=== PATIENT | female | born 1965 | race American Indian/Alaskan Native ===

== ENCOUNTER 2017-09-15 13:30 | Outpatient (CLI) | payer OTHER | END 2017-09-15 13:31 | disposition home or self-care (01) | LOC: CARD 13:30 | PROVIDERS: ATTEND Family Medicine | DX: R07.9 Chest pain, unspecified (principal) | CPT/HCPCS: 93005; 93010 ==

== ENCOUNTER 2020-10-28 10:07 | Observation (INO) | payer OTHER ==
[2020-10-28] MEDS ORDERED: HYDROmorphone 1 MG/1 ML INJ IV ONE (10:20)
[2020-10-28] MEDS ORDERED: METOCLOPRAMIDE 10 MG/2 ML INJ IV ONE (10:20)
--- NOTE | 2020-10-28 10:27 | Emergency Department Report ---
ED General Adult HPI - General Chief complaint: Abdominal Pain Stated complaint: Nausea, vomiting abdominal cramping, weakness PUI?: No Time Seen by Provider: 10/28/20 10:12 Source: patient, EMS (Verbal report received from emergency medical services. 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 He/she was evaluated in the context of the global COVID-19 pandemic, which necessitated consideration that the patient might be at risk for infection with the virus that causes COVID-19. Instit utional protocols and algorithms that pertain to the evaluation of patients at risk for COVID-19 are in a state of rapid change based on information released by regulatory bodies including the CDC and federal and state organizations. These policies and algorithms were followed during the patient's care in the emergency department. Please note that these policies, procedures and recommendations changed on a rapid basis. Patient is a 55-year-old female. She is not known to myself previously. She reports distant surgical history of hysterectomy, and oophorectomy. She is brought to the hospital today by emergency medical services with an acute complaint of generalized weakness, which started at 7:00 this morning, accompanied by nausea and vomiting, and epigastric abdominal cramping. Patient states symptoms started at 7:00 this morning. The patient denies headache, neck pain, chest pain. She endorses abdominal cramping. Positive nausea and vomiting. No loss of vision. No neck pain. No loss of taste or smell. Patient denies focal extremity weakness/numbness, but indicates that she feels like her right side is "cramping." EMS reports normal Accu-Chek in the field, unremarkable vital signs, with the exception of bradycardia, and normal Accu- Chek, patient was given 4 of Zofran in the field. Patient indicates her symptoms are constant, and she is not able to describe exacerbating or relieving factors, or radiation factors. No recent surgeries. No hematemesis of bright red blood per rectum. -: Sudden Consistency: constant Improves with: none Worsens with: none - Related Data Allergies Allergy/AdvReac Type Severity Reaction Status Date / Time morphine AdvReac Headache Verified 03/28/21 11:07 ED Review of Systems ROS: Stated complaint: VOMITING/HTW Other details as noted in HPI Constitutional: malaise, weakness, other (Denies loss of taste and smell). denies: fever Eyes: denies: eye discharge, vision change Respiratory: denies: cough Cardiovascular: denies: chest pain Gastrointestinal: nausea, vomiting. denies: abdominal pain (Patient denies a bdominal pain) Musculoskeletal: denies: back pain Neurological: weakness, abnormal gait. denies: headache Hematological/Lymphatic: denies: easy bleeding ED Physical Exam - General Limitations: Physical Limitation General appearance: alert, anxious, in distress, obese - Head Head exam: Present: atraumatic, normocephalic - Eye Eye exam: Present: normal appearance, PERRL, EOMI, other (Visual acuity intact to finger counting and color perception at a close distance). Absent: nystagmus - ENT ENT exam: Present: normal exam, normal orophraynx, mucous membranes moist, normal external ear exam - Neck Neck exam: Present: normal inspection, full ROM. Absent: tenderness, meningi smus - Respiratory Respiratory exam: Present: normal lung sounds bilaterally. Absent: respiratory distress, wheezes, rales, rhonchi, stridor, decreased breath sounds - Cardiovascular Cardiovascular Exam: Present: normal rhythm, bradycardia, normal heart sounds. Absent: systolic murmur, diastolic murmur, rubs, gallop - GI/Abdominal GI/Abdominal exam: Present: soft. Absent: distended, tenderness, guarding, rebound, rigid, pulsatile mass - Extremities Exam Extremities exam: Present: normal inspection, full ROM, other (2+ pulses noted in the bilateral upper and lower extremities. There is no palpable cord. negative Homans sign. Muscular compartments are soft. The pelvis is stable.). Absent: pedal edema, calf tenderness - Back Exam Back exam: Present: normal inspection. Absent: tenderness, CVA tenderness (R), CVA tenderness (L), paraspinal tenderness, vertebral tenderness - Neurological Exam Neurological exam: Present: alert, other (There is no facial droop. The tongue is midline. The extraocular movements are intact bilaterally. Hearing is g rossly intact bilaterally, shoulder shrug is intact bilaterally. 5 out of 5 strength in 4 extremities, sensation is intact to pinch in 4 extremities. Patient has past-pointing in her b) - Psychiatric Psychiatric exam: Present: anxious - Skin Skin exam: Present: warm, dry, intact, normal color. Absent: rash ED Course Vital Signs 10/28/20 10/28/20 10/28/20 10:20 11:16 11:31 Temperature 96.8 F L Pulse Rate 46 L 53 L 56 L Respiratory 22 20 11 L Rate Blood Pressure 98/72 153/70 Blood Pressure 141/66 [Left] O2 Sat by Pulse 99 99 92 Oximetry 10/28/20 10/28/20 10/28/20 11:45 12:00 12:15 Temperature Pulse Rate 56 L 71 79 Respiratory 12 16 19 Rate Blood Pressure 157/64 161/83 105/81 Blood Pressure [Left] O2 Sat by Pulse 99 99 98 Oximetry 10/28/20 10/28/20 12:31 12:45 Temperature Pulse Rate 54 L 59 L Respiratory 15 18 Rate Blood Pressure 131/87 105/81 Blood Pressure [Left] O2 Sat by Pulse 98 97 Oximetry - Reevaluation(s) Reevaluation #1: 10/28/20 10:28 Differential diagnosis, including but not limited to: Cerebellar stroke, obstruction, electrolyte derangement, colitis, diverticulitis, enteritis, acute coronary syndrome Assessment and plan: 55-year-old female with acute onset generalized weakness, nausea and vomiting, nonfocal motor exam, but past-pointing in her bilateral upper extremities, EMS articulates that patient was ambulatory in the field only with a 2 person assist, also with abdominal cramping Patient needs to be evaluated emergently for cerebellar stroke, and acute intra- abdominal surgical conditions. We will treat her empirically with hydromorphone, and Reglan and fluids. Patient emergently administratively consented by myself and stroke neurology for CT scan of the brain, CT angiogram head and neck. We will also obtain emergent CT scan abdomen pelvis to exclude surgical pathology, that would preclude patient from receiving TPA. Currently, patient is in CAT scan, receiving evaluation from our neurologist. 10/28/20 10:30 10/28/20 10:58 Heart rate in the 60s. Blood pressure in the 90s. Patient mentating. IV fluids ordered. Rectal temperature pending. Noncontrast CT scan of the brain negative for acute findings. Angiogram pending formal interpretation. Have discussed the case with Dr. Baca, stroke neurologist. Given hypotension, bradycardia, nonfocal examination, a broad differential diagnosis, we both agree at this point time, that TPA not appropriate or indicated, and we will seek alternative pathology/explanations for patient's presentation. I will also discussed this with the patient and her daughter. 10/28/20 11:34 CT angiogram negative for acute finding CT scan abdomen pelvis is reviewed and appreciated. I had extensive discussion with the patient regarding her CT scan findings, and differential diagnosis. I also specifically counseled the patient as to why we did not think TPA was appropriate/indicated, patient has verbalized understanding, and indicates that she would not like to receive TPA at any point. Blood pressure improved, bradycardia improving. Patient is found to have evidence of lactic acidosis. And very mild hypothermia. Patient be resuscitated empirically according to the sepsis pathway, she has already received 2 L of lactated Ringer's, I will order additional 576 cc, to complete 30 cc/kg bolus. Empiric antibiotics ordered, although I suspect that CT scan findings likely secondary to viral etiology. Hospital physician, Dr. Nyla Boyd to admit Neurologic examination remains unchanged, nonfocal, no focal extremity w eakness/numbness, patient still nauseous, but no active vomiting and I am able to detect 10/28/20 11:39 10/28/20 13:22 Patient feeling improved. No active vomiting. Lactic acid has cleared from 4.6 to 2.0. Hemodynamically stable. Do not see indication for additional lactic acid. Normal mental status at this time, capillary refill 2 seconds. ED Medical Decision Making - Lab Data Result diagrams: 10/28/20 10:53 10/28/20 10:53 Lab Results 10/28/20 Range/Units 10:53 WBC 7.2 (4.5-11.0) K/mm3 RBC 4.66 (3.65-5.03) M/mm3 Hgb 14.2 (10.1-14.3) gm/dl Hct 42.8 (30.3-42.9) % MCV 92 (79-97) fl MCH 31 (28-32) pg MCHC 33 (30-34) % RDW 14.8 (13.2-15.2) % Plt Count 172 (140-440) K/mm3 Lymph % (Auto) 12.6 L (13.4-35.0) % Bowie % (Auto) 4.3 (0.0-7.3) % Eos % (Auto) 0.3 (0.0-4.3) % Baso % (Auto) 0.2 (0.0-1.8) % Lymph # (Auto) 0.9 L (1.2-5.4) K/mm3 Bowie # (Auto) 0.3 (0.0-0.8) K/mm3 Eos # (Auto) 0.0 (0.0-0.4) K/mm3 Baso # (Auto) 0.0 (0.0-0.1) K/mm3 Seg Neutrophils % 82.6 H (40.0-70.0) % Seg Neutrophils # 5.9 (1.8-7.7) K/mm3 Vital Signs 10/28/20 10/28/20 10:20 11:16 Temperature 96.8 F L Pulse Rate 46 L 53 L Respiratory 22 20 Rate Blood Pressure 98/72 Blood Pressure 141/66 [Left] O2 Sat by Pulse 99 99 Oximetry Lab Results 10/28/20 10/28/20 10/28/20 Range/Units 10:21 10:53 10:53 WBC 7.2 (4.5-11.0) K/mm3 RBC 4.66 (3.65-5.03) M/mm3 Hgb 14.2 (10.1-14.3) gm/dl Hct 42.8 (30.3-42.9) % MCV 92 (79-97) fl MCH 31 (28-32) pg MCHC 33 (30-34) % RDW 14.8 (13.2-15.2) % Plt Count 172 (140-440) K/mm3 Lymph % (Auto) 12.6 L (13.4-35.0) % Bowie % (Auto) 4.3 (0.0-7.3) % Eos % (Auto) 0.3 (0.0-4.3) % Baso % (Auto) 0.2 (0.0-1.8) % Lymph # (Auto) 0.9 L (1.2-5.4) K/mm3 Bowie # (Auto) 0.3 (0.0-0.8) K/mm3 Eos # (Auto) 0.0 (0.0-0.4) K/mm3 Baso # (Auto) 0.0 (0.0-0.1) K/mm3 Seg Neutrophils % 82.6 H (40.0-70.0) % Seg Neutrophils # 5.9 (1.8-7.7) K/mm3 PT 13.1 (12.2-14.9) Sec. INR 1.00 (0.87-1.13) APTT 28.5 (24.2-36.6) Sec. Thrombin Time 17.1 (15.1-19.6) Sec. Sodium (137-145) mmol/L Potassium (3.6-5.0) mmol/L Chloride (98-107) mmol/L Carbon Dioxide (22-30) mmol/L Anion Gap mmol/L BUN (7-17) mg/dL Glucose (65-100) mg/dL POC Glucose 185 H (70-105) mg/dL Calcium (8.4-10.2) mg/dL Magnesium (1.7-2.3) mg/dL Total Bilirubin (0.1-1.2) mg/dL AST (5-40) units/L ALT (7-56) units/L Alkaline Phosphatase (35-129) units/L Total Creatine Kinase (30-135) units/L Troponin T (0.00-0.029) ng/mL Total Protein (6.3-8.2) g/dL Albumin (3.9-5) g/dL Albumin/Globulin Ratio % 10/28/ Range/Units 10:53 WBC (4.5-11.0) K/mm3 RBC (3.65-5.03) M/mm3 Hgb (10.1-14.3) gm/dl Hct (30.3-42.9) % MCV (79-97) fl MCH (28-32) pg MCHC (30-34) % RDW (13.2-15.2) % Plt Count (140-440) K/mm3 Lymph % (Auto) (13.4-35.0) % Bowie % (Auto) (0.0-7.3) % Eos % (Auto) (0.0-4.3) % Baso % (Auto) (0.0-1.8) % Lymph # (Auto) (1.2-5.4) K/mm3 Bowie # (Auto) (0.0-0.8) K/mm3 Eos # (Auto) (0.0-0.4) K/mm3 Baso # (Auto) (0.0-0.1) K/mm3 Seg Neutrophils % (40.0-70.0) % Seg Neutrophils # (1.8-7.7) K/mm3 PT (12.2-14.9) Sec. INR (0.87-1.13) APTT (24.2-36.6) Sec. Thrombin Time (15.1-19.6) Sec. Sodium 136 L (137-145) mmol/L Potassium 3.6 (3.6-5.0) mmol/L Chloride 97.6 L (98-107) mmol/L Carbon Dioxide 23 (22-30) mmol/L Anion Gap 19 mmol/L BUN 15 (7-17) mg/dL Glucose 169 H (65-100) mg/dL POC Glucose (70-105) mg/dL Calcium 9.2 (8.4-10.2) mg/dL Magnesium 1.80 (1.7-2.3) mg/dL Total Bilirubin 0.50 (0.1-1.2) mg/dL AST 12 (5-40) units/L ALT 10 (7-56) units/L Alkaline Phosphatase 75 (35-129) units/L Total Creatine Kinase 53 (30-135) units/L Troponin T < 0.010 (0.00-0.029) ng/mL Total Protein 7.0 (6.3-8.2) g/dL Albumin 4.1 (3.9-5) g/dL Albumin/Globulin Ratio 1.4 % Vital Signs 10/28/20 10/28/20 10:20 11:16 Temperature 96.8 F L Pulse Rate 46 L 53 L Respiratory 22 20 Rate Blood Pressure 98/72 Blood Pressure 141/66 [Left] O2 Sat by Pulse 99 99 Oximetry - EKG Data -: EKG Interpreted by Wi EKG shows normal: sinus rhythm Rate: normal - EKG Data 10/28/20 10:59 EKG interpreted at 10: 55 AM Sinus rhythm, 61 bpm. Normal axis. QTC prolonged. Left ventricular hypertrophy. Motion artifact. Abnormal EKG. The EKG is not a STEMI. Patient denies chest pain. - Radiology Data Radiology results: pending, report reviewed, image reviewed Noncontrast CT scan of the brain, read negative for acute findings. NONENHANCED CT SCAN OF THE BRAIN: INDICATION: MAIN. Right-sided weakness; nausea and vomiting TECHNIQUE: Routine CT head without contrast. Sagittal and coronal reformatted images were obtained. All CT scans at this location are performed using CT dose reduction for ALARA by means of automated exposure control. COMPARISON: None. FINDINGS: BRAIN / INTRACRANIAL CONTENTS: Hemorrhage: No intracranial hemorrhage; no subarachnoid hemorrhage Stroke mimics: No subdural or epidural hematoma or space taking lesion Acute/subacute territorial infarction: Moreland-white matter interface: No blurring; normal Insular cortex: Normal Basal ganglia: Normal Wedge shaped parenchymal low density area: Not present Cortical sulci: Not effaced Lacunar infarctions: No acute lacunae Vasculopathy: Dense middle cerebral artery sign: Not present Internal carotid artery terminus: Normal Basilar artery:Normal Middle cerebral artery branches in the sylvian fissure (Dot sign): Normal Calcified embolus: Not present ASPECT score: 10 Chronic lesions: No chronic ischemic lesions White matter: Focal low- attenuation white matter lesions probably from chronic small vessel disease Craniocervical junction:No significant abnormality Orbits:No significant abnormality Paranasal sinuses/mastoids:No significant abnormality Additional findings: None IMPRESSION: No intracerebral hemorrhage or stroke mimics No acute/subacute infarction This exam was performed as part of a code stroke protocol. The exam was completed at [facility] on 10/28/2020 9:45 AM. The exam was reviewed at 9:50 AM and ER physician was notified at 9:54 AM. Signer Name: Carmela Rivera MD Signed: 10/28/2020 9:55 AM Workstation Name: [id number] CT ABDOMEN AND PELVIS WITH CONTRAST INDICATION / CLINICAL INFORMATION: Weakness, nausea, vomiting. TECHNIQUE: Axial CT images were obtained through the abdomen and pelvis following the administration of intravenous contrast. All CT scans at this location are performed using CT dose reduction for ALARA by means of automated exposure control. COMPARISON: None available. FINDINGS: LOWER CHEST: No significant abnormality. LIVER: No significant abnormality. GALLBLADDER: No significant abnormality. PANCREAS: No significant abnormality. SPLEEN: No significant abnormality. ADRENALS: No significant abnormality. KIDNEYS / URETERS: No significant abnormality. URINARY BLADDER: No significant abnormality. REPRODUCTIVE ORGANS: No significant abnormality. STOMACH / SMALL BOWEL: There are several fluid-filled loops of small bowel which demonstrate mild mucosal enhancement. COLON: There is fluid within the descending and sigmoid colon, also with mild mucosal enhancement. APPENDIX: No significant ab normality. PERITONEUM: No free fluid. No free air. No fluid collection. LYMPH NODES: No significant adenopathy. AORTA / ARTERIES: No significant abnormality. IVC / VEINS: No significant abnormality. SKELETAL SYSTEM: No significant abnormality. ADDITIONAL FINDINGS: None. IMPRESSION: 1. Fluid-filled loops of small bowel with mild mucosal enhancement is suggestive of an enteritis. There is also fluid within the distal descending and sigmoid colon. Signer Name: Jp Tristan MD Signed: 10/28/2020 10:00 AM Workstation Name: [id number] CTA NECK WITH CONTRAST HISTORY: Weakness on the right side; nausea and vomiting Cerebellar stroke COMPARISON: None. TECHNIQUE: Routine CTA of the neck was performed. 3-D/MIP reformats were postprocessed. Percentage stenosis is determined by direct quantitative measurements of diseased internal carotid artery diameter compared with normal distal internal carotid artery reference segments or by criteria similar to NASCET where applicable.All CT scans at this location are performed using CT dose reduction for [employer] by means of automated exposure control CONTRAST: 100 ml of Omnipaque 350 FINDINGS: Aortic arch: No significant abnormality. Cervical vertebral arteries: No significant abnormality. Common carotid arteries: No significant abnormality. Carotid bifurcations: Normal Cervical internal carotid arteries: No significant abnormality. Additional findings: None. IMPRESSION: 1. No significant abnormality. Signer Name: Carmela Rivera MD Signed: 10/28/2020 10:03 AM Workstation Name: [id number] CTA HEAD WITH CONTRAST HISTORY: Weakness on the right side; nausea and vomiting Cerebellar stroke COMPARISON: None. TECHNIQUE: Routine non-contrast CT Head, CTA of the head and post-contrast CT Head are performed. 3-D/MIP reformats postprocessed. All CT scans at this location are performed using CT dose reduction for ALARA by means of automated exposure control CONTRAST: 100 ml of Omnipaque 350 FINDINGS: CTA Head: Intracranial vertebral arteries: Both vertebral arteries are normal; right PICA normal Basilar artery: No significant abnormality. Posterior cerebral arteries: No significant abnormality. Posterior communicating arteries are contributing to posterior cerebral arteries Intracranial internal carotid arteries: No significant abnormality. Anterior cerebral arteries: No significant abnormality. Middle cerebral arteries: No significant abnormality. Dural venous sinuses:Not optimally opacified. No sign ificant abnormality. Additional findings: None. IMPRESSION: 1. No significant abnormality. Signer Name: Carmela Rivera MD Signed: 10/28/2020 10:07 AM Workstation Name: [id number] Critical Care Time: Yes Critical care time in (mins) excluding proc time.: 35 Critical care attestation.: If time is entered above; I have spent that time in minutes in the direct care of this critically ill patient, excluding procedure time. ED Disposition Clinical Impression: Acute weakness, History of bradycardia, Acute abdominal pain, SIRS (systemic inflammatory response syndrome), Lactic acidosis Nausea and vomiting Qualifiers: Vomiting type: unspecified Vomiting Intractability: unspecified Qualified Code(s): R11.2 - Nausea with vomiting, unspecified Hypotension Qualifiers: Hypotension type: other hypotension type Qualified Code(s): I95.89 - Other hypotension Disposition: 09 OP ADMIT IP TO THIS HOSP Is pt being admited?: Yes Does the pt Need Aspirin: Yes Condition: Fair Instructions: Abdominal Pain (ED) Referrals: PRIMARY CARE, [Primary Care Provider] - 3-5 Days
[2020-10-28] MEDS ORDERED: LACTATED RINGERS 2,000 ML IV ONE (10:50)
--- NOTE | 2020-10-28 10:56 | Consultation ---
Medications and Allergies Allergies Allergy/AdvReac Type Severity Reaction Status Date / Time No Known Allergies Allergy Unverified 03/17/14 10:09 Active Meds: Active Medications Lactated Ringer's (Lactated Ringers) 2,000 mls @ 999 mls/hr IV BOLUS ONE Stop: 10/28/20 12:50 Assessment and Plan [facility] Consult Note # Demographics Consult Type: 0-6 hour Stroke First Name: Kaia Last Name: Rodger Date of : 1965 Age: 55 Gender: female Time of initial page ([place] ): 10-28-2020, 08:25 Time of return call ([place] ): 10-28-2020, 08:26 # HPI Additional History: 55F with vomiting and lethargy after initially being normal per report. 07:00 right arm and leg felt like vibrating per patient. Abdominal pain and bilious vomiting, also diarrhea. Bradycardia noted. Diaphoretic also. EMS reported she was face down in bathroom when initially encountered. Responsive, interactive upon ED arrival. Patient confirms she was ok initially today. No prior similar per patient. No visual loss or double vision. No weakness, numbness on either side. Denies headache. Possible Alteplase Candidate: not on warfarin or NOACs # Scores Time of exam and NIHSS ([place] ): 10-28-2020, 08:43 Level of Consciousness 1a: [0] = Alert; keenly responsive LOC Questions 1b: [0] = Answers both questions correctly LOC Commands 1c: [0] = Performs both tasks correctly Best Gaze 2: [0] = Normal Visual 3: [0] = No visual loss Facial Palsy 4: [0] = Normal symmetrical movements Motor Arm Left 5a: [0] = No drift Motor Arm Right 5b: [0] = No drift Motor Leg Left 6a: [0] = No drift Motor Leg Right 6b: [0] = No drift Limb Ataxia 7: [0] = Absent Sensory 8: [0] = Normal Best Language 9: [0] = No aphasia Dysarthria 10: [0] = Normal Extinction and Inattention 11: [0] = No abnormality NIHSS Total: 0 # Data Time Head CT personally ready by me ([place] ): 10-28-2020, 08:[address]: preliminarily reviewed by me, please refer to radiology read for official reading, no bleed CTA Head: preliminarily reviewed by me, please refer to radiology read for official reading, no large vessel occlusion CTA Neck: patent vessels, preliminarily reviewed by me, please refer to radiology read for official reading # Assessment Impression: Vertigo, There is no focal neurologic deficit to make stroke the most likely etiology. Could be peripheral vertigo or abdominal process given reported abdominal pain. With available data, risk > benefit for IV tPA as best I can determine. # Plan Thrombolytic/Intervention: NOT IV Alteplase or IA Intervention Alteplase Exclusion: other (see below), risk > benefit. Intraarterial Exclusion: no large vessel occlusion (LVO) Imaging: (urgency: routine admission): MRI Brain without contrast Diagnostic Test: echo with bubble study Other: telemetry monitoring, I have discussed my recommendations with the referring provider Disposition: admit
--- NOTE | 2020-10-28 10:59 | Cat Scan Report ---
NONENHANCED CT SCAN OF THE BRAIN: INDICATION: MAIN. Right-sided weakness; nausea and vomiting TECHNIQUE: Routine CT head without contrast. Sagittal and coronal reformatted images were obtained. A ll CT scans at this location are performed using CT dose reduction for ALARA by means of automated ex posure control. COMPARISON: None. FINDINGS: BRAIN / INTRACRANIAL CONTENTS: Hemorrhage: No intracranial hemorrhage; no subarachnoid hemorrhage Stroke mimics: No subdural or epidural hematoma or space taking lesion Acute/subacute territorial infarction: Moreland-white matter interface: No blurring; normal Insular cortex: Normal Basal ganglia: Normal Wedge shaped parenchymal low density area: Not present Cortical sulci: Not effaced Lacunar infarctions: No acute lacunae Vasculopathy: Dense middle cerebral artery sign: Not present Internal carotid artery terminus: Normal Basilar artery:Normal Middle cerebral artery branches in the sylvian fissure (Dot sign): Normal Calcified embolus: Not present ASPECT score: 10 Chronic lesions: No chronic ischemic lesions White matter: Focal low-attenuation white matter lesions probably from chronic small vessel disease Craniocervical junction:No significant abnormality Orbits:No significant abnormality Paranasal sinuses/mastoids:No significant abnormality Additional findings: None IMPRESSION: No intracerebral hemorrhage or stroke mimics No acute/subacute infarction This exam was performed as part of a code stroke protocol. The exam was completed at [facility] on 10/28/2020 9:45 AM. The exam was reviewed at 9:50 AM and ER physician was notified at 9:54 AM. Signer Name: Carmela Rivera MD Signed: 10/28/2020 10:55 AM Workstation Name: [id number]
[2020-10-28 11:03] LABS: Basophils % (Auto) 0.2 % (0.0-1.8); Eosinophils % (Auto) 0.3 % (0.0-4.3); Hematocrit 42.8 % (30.3-42.9); Hemoglobin 14.2 gm/dl (10.1-14.3); Lymphocytes # (Auto) 0.9 K/mm3 (1.2-5.4); Lymphocytes % (Auto) 12.6 % (13.4-35.0); Mean Corpuscular HGB Conc 33 % (30-34); Mean Corpuscular Volume 92 fl (79-97); Monocytes # (Auto) 0.3 K/mm3 (0.0-0.8); Monocytes % (Auto) 4.3 % (0.0-7.3); Platelet Count 172 K/mm3 (140-440); Red Blood Count 4.66 M/mm3 (3.65-5.03); Red Cell Distribution Width 14.8 % (13.2-15.2)
--- NOTE | 2020-10-28 11:05 | Cat Scan Report ---
CT ABDOMEN AND PELVIS WITH CONTRAST INDICATION / CLINICAL INFORMATION: Weakness, nausea, vomiting. TECHNIQUE: Axial CT images were obtained through the abdomen and pelvis following the administration of intraven ous contrast. All CT scans at this location are performed using CT dose reduction for ALARA by means of automated exposure control. COMPARISON: None available. FINDINGS: LOWER CHEST: No significant abnormality. LIVER: No significant abnormality. GALLBLADDER: No significant abnormality. PANCREAS: No significant abnormality. SPLEEN: No significant abnormality. ADRENALS: No significant abnormality. KIDNEYS / URETERS: No significant abnormality. URINARY BLADDER: No significant abnormality. REPRODUCTIVE ORGANS: No significant abnormality. STOMACH / SMALL BOWEL: There are several fluid-filled loops of small bowel which demonstrate mild muc osal enhancement. COLON: There is fluid within the descending and sigmoid colon, also with mild mucosal enhancement. APPENDIX: No significant abnormality. PERITONEUM: No free fluid. No free air. No fluid collection. LYMPH NODES: No significant adenopathy. AORTA / ARTERIES: No significant abnormality. IVC / VEINS: No significant abnormality. SKELETAL SYSTEM: No significant abnormality. ADDITIONAL FINDINGS: None. IMPRESSION: 1. Fluid-filled loops of small bowel with mild mucosal enhancement is suggestive of an enteritis. The re is also fluid within the distal descending and sigmoid colon. Signer Name: Jp Tristan MD Signed: 10/28/2020 11:00 AM Workstation Name: [id number]
--- NOTE | 2020-10-28 11:07 | Cat Scan Report ---
CTA NECK WITH CONTRAST HISTORY: Weakness on the right side; nausea and vomiting Cerebellar stroke COMPARISON: None. TECHNIQUE: Routine CTA of the neck was performed. 3-D/MIP reformats were postprocessed. Percentage s tenosis is determined by direct quantitative measurements of diseased internal carotid artery diamete r compared with normal distal internal carotid artery reference segments or by criteria similar to NA SCET where applicable.All CT scans at this location are performed using CT dose reduction for ALARA b y means of automated exposure control CONTRAST: 100 ml of Omnipaque 350 FINDINGS: Aortic arch: No significant abnormality. Cervical vertebral arteries: No significant abnormality. Common carotid arteries: No significant abnormality. Carotid bifurcations: Normal Cervical internal carotid arteries: No significant abnormality. Additional findings: None. IMPRESSION: 1. No significant abnormality. Signer Name: Carmela Rivera MD Signed: 10/28/2020 11:03 AM Workstation Name: [id number]
--- NOTE | 2020-10-28 11:08 | XRay Report ---
CHEST 1 VIEW 10/28/2020 10:03 AM INDICATION / CLINICAL INFORMATION: n/v weak. COMPARISON: None available. FINDINGS: SUPPORT DEVICES: None. HEART / MEDIASTINUM: No significant abnormality. LUNGS / PLEURA: No significant pulmonary or pleural abnormality. No pneumothorax. ADDITIONAL FINDINGS: No significant additional findings. IMPRESSION: 1. No acute cardiopulmonary abnormality. Signer Name: Jp Tristan MD Signed: 10/28/2020 11:04 AM Workstation Name: [id number]
--- NOTE | 2020-10-28 11:12 | Cat Scan Report ---
CTA HEAD WITH CONTRAST HISTORY: Weakness on the right side; nausea and vomiting Cerebellar stroke COMPARISON: None. TECHNIQUE: Routine non-contrast CT Head, CTA of the head and post-contrast CT Head are performed. 3-D /MIP reformats postprocessed. All CT scans at this location are performed using CT dose reduction for ALARA by means of automated exposure control CONTRAST: 100 ml of Omnipaque 350 FINDINGS: CTA Head: Intracranial vertebral arteries: Both vertebral arteries are normal; right PICA normal Basilar artery: No significant abnormality. Posterior cerebral arteries: No significant abnormality. Posterior communicating arteries are contrib uting to posterior cerebral arteries Intracranial internal carotid arteries: No significant abnormality. Anterior cerebral arteries: No significant abnormality. Middle cerebral arteries: No significant abnormality. Dural venous sinuses:Not optimally opacified. No significant abnormality. Additional findings: None. IMPRESSION: 1. No significant abnormality. Signer Name: Carmela Rivera MD Signed: 10/28/2020 11:07 AM Workstation Name: [id number]
[2020-10-28 11:15] LABS: Partial Thromboplastin Time 28.5 Sec. (24.2-36.6); Thrombin Time 17.1 Sec. (15.1-19.6)
[2020-10-28] MEDS ORDERED: ONDANSETRON 4 MG/2 ML INJ IV ONE (11:26)
[2020-10-28 11:29] LABS: Alanine Aminotransferase 10 units/L (7-56); Albumin 4.1 g/dL (3.9-5); Blood Urea Nitrogen 15 mg/dL (7-17); Calcium 9.2 mg/dL (8.4-10.2); Hemolysis Index 5
[2020-10-28 11:34] LABS: BUN/Creatinine Ratio 21; Creatine Kinase MB < 1.0 ng/mL (0.0-4.0)
[2020-10-28] MEDS ORDERED: LACTATED RINGERS IV ONE (11:38)
[2020-10-28] MEDS ORDERED: metroNIDAZOLE/NS 500 MG/100 ML 500 MG/100 ML BAG IV ONE (11:38)
[2020-10-28] MEDS ORDERED: ASPIRIN 81 MG TAB CHEW PO ONE (11:41)
[2020-10-28 12:33] LABS: Bilirubin,Urine NEG (Negative); Blood,Urine NEG (Negative); Color,Urine Yellow (Yellow); Mucus,Urine FEW /HPF; Protein,Urine <15 mg/dL mg/dL (Negative); Urobilinogen,Urine < 2.0 mg/dL (<2.0)
[2020-10-28] MEDS ORDERED: ONDANSETRON 4 MG/2 ML INJ IV PRN ×2 (19:31→21:28)
--- NOTE | 2020-10-28 21:20 | History and Physical Report ---
History of Present Illness Date of examination: 10/28/20 Date of admission: 10/28/20 11:41 Chief complaint: Multiple episodes of vomiting and diarrhea History of present illness: 55-year-old female comes in for nausea vomiting and epigastric pain since 7 AM. Patient apparently vomited numerous times. Also has abdominal cramps. Patient had a low pulse rate which is normalized in the emergency room. No loss of taste or smell. No neurological symptoms. ER physician consulted neurology for unknown reasons. No blood per rectum. Her main complaint is persistent vomiting and nausea. Past History Past Medical History: No medical history Past Surgical History: No surgical history Social history: lives with family, full code Family history: no significant family history Medications and Allergies Allergies Allergy/AdvReac Type Severity Reaction Status Date / Time morphine AdvReac Headache Verified 10/28/20 11:07 Active Meds: Active Medications Ondansetron HCl (Ondansetron 4 Mg/2 Ml Inj) 4 mg IV Q4H PRN PRN Reason: Nausea And Vomiting Last Admin: 10/28/20 19:49 Dose: 4 mg Documented by: Review of Systems All systems: negative Constitutional: no weight loss, no weight gain, no fever, no chills Ears, nose, mouth and throat: no tinnitis Breasts: deferred Cardiovascular: no chest pain, no orthopnea, no palpitations, no rapid/irregular heart beat, no edema, no syncope, no lightheadedness, no shortness of breath Respiratory: no cough, no cough with sputum, no excessive sputum, no hemoptysis, no shortness of breath Gastrointestinal: abdominal pain, nausea, vomiting, diarrhea Genitourinary Female: no dysuria, no urinary frequency Rectal: no pain Integumentary: no pruritis, no redness Psychiatric: no anxiety, no hypersomnia Exam - Constitutional Vitals: Temp Pulse Resp BP Pulse Ox 96.8 F L 65 12 158/80 94 10/28/20 10:20 10/28/20 18:45 10/28/20 18:45 10/28/20 18:45 10/28/20 18:45 General appearance: Present: no acute distress, well-nourished - EENT Eyes: Present: PERRL ENT: hearing intact, clear oral mucosa - Neck Neck: Present: supple, normal ROM - Respiratory Respiratory effort: normal Respiratory: bilateral: CTA - Cardiovascular Heart rate: 78 Rhythm: regular Heart Sounds: Present: S1 & S2. Absent: rub, click - Extremities Extremities: pulses symmetrical, No edema Peripheral Pulses: within normal limits - Abdominal General gastrointestinal: Present: soft, tender, non-distended, normal bowel sounds Localized gastrointestinal: tender: diffuse (No guarding) Female genitourinary: Present: normal - Integumentary Integumentary: Present: clear, warm, dry - Musculoskeletal Musculoskeletal: gait normal, strength equal bilaterally - Psychiatric Psychiatric: appropriate mood/affect, intact judgment & insight - Neurologic Neurologic: CNII-XII intact, moves all extremities HEART Score - HEART Score Troponin: Troponin T < 0.010 ng/mL (0.00-0.029) 10/28/20 10:53 Results - Labs CBC & Chem 7: 10/28/20 10:53 10/28/20 10:53 Labs: Laboratory Last Values WBC 7.2 K/mm3 (4.5-11.0) 10/28/20 10:53 RBC 4.66 M/mm3 (3.65-5.03) 10/28/20 10:53 Hgb 14.2 gm/dl (10.1-14.3) 10/28/20 10:53 Hct 42.8 % (30.3-42.9) 10/28/20 10:53 MCV 92 fl (79-97) 10/28/20 10:53 MCH 31 pg (28-32) 10/28/20 10:53 MCHC 33 % (30-34) 10/28/20 10:53 RDW 14.8 % (13.2-15.2) 10/28/20 10:53 Plt Count 172 K/mm3 (140-440) 10/28/20 10:53 Lymph % (Auto) 12.6 % (13.4-35.0) L 10/28/20 10:53 [place] % (Auto) 4.3 % (0.0-7.3) 10/28/20 10:53 Eos % (Auto) 0.3 % (0.0-4.3) 10/28/20 10:53 Baso % (Auto) 0.2 % (0.0-1.8) 10/28/20 10:53 Lymph # (Auto) 0.9 K/mm3 (1.2-5.4) L 10/28/20 10:53 [place] # (Auto) 0.3 K/mm3 (0.0-0.8) 10/28/20 10:53 Eos # (Auto) 0.0 K/mm3 (0.0-0.4) 10/28/20 10:53 Baso # (Auto) 0.0 K/mm3 (0.0-0.1) 10/28/20 10:53 Seg Neutrophils % 82.6 % (40.0-70.0) H 10/28/20 10:53 Seg Neutrophils # 5.9 K/mm3 (1.8-7.7) 10/28/20 10:53 PT 13.1 Sec. (12.2-14.9) 10/28/20 10:53 INR 1.00 (0.87-1.13) 10/28/20 10:53 APTT 28.5 Sec. (24.2-36.6) 10/28/20 10:53 Thrombin Time 17.1 Sec. (15.1-19.6) 10/28/20 10:53 Sodium 136 mmol/L (137-145) L 10/28/20 10:53 Potassium 3.6 mmol/L (3.6-5.0) 10/28/20 10:53 Chloride 97.6 mmol/L (98-107) L 10/28/20 10:53 Carbon Dioxide 23 mmol/L (22-30) 10/28/20 10:53 Anion Gap 19 mmol/L 10/28/20 10:53 BUN 15 mg/dL (7-17) 10/28/20 10:53 Creatinine 0.7 mg/dL (0.6-1.2) 10/28/20 10:53 Estimated GFR > 60 ml/min 10/28/20 10:53 BUN/Creatinine Ratio 21 % 10/28/20 10:53 Glucose 169 mg/dL (65-100) H 10/28/20 10:53 POC Glucose 185 mg/dL (70-105) H 10/28/20 10:21 Lactic Acid 2.00 mmol/L (0.7-2.0) 10/28/20 12:52 Calcium 9.2 mg/dL (8.4-10.2) 10/28/20 10:53 Magnesium 1.80 mg/dL (1.7-2.3) 10/28/20 10:53 Total Bilirubin 0.50 mg/dL (0.1-1.2) 10/28/20 10:53 AST 12 units/L (5-40) 10/28/20 10:53 ALT 10 units/L (7-56) 10/28/20 10:53 Alkaline Phosphatase 75 units/L (35-129) 10/28/20 10:53 Total Creatine Kinase 53 units/L (30-135) 10/28/20 10:53 CK-MB (CK-2) < 1.0 ng/mL (0.0-4.0) 10/28/20 10:53 CK-MB (CK-2) Rel Index 1.8 (0-4) 10/28/20 10:53 Troponin T < 0.010 ng/mL (0.00-0.029) 10/28/20 10:53 Total Protein 7.0 g/dL (6.3-8.2) 10/28/20 10:53 Albumin 4.1 g/dL (3.9-5) 10/28/20 10:53 Albumin/Globulin Ratio 1.4 % 10/28/20 10:53 Urine Color Yellow (Yellow) 10/28/20 Unknown Urine Turbidity Clear (Clear) 10/28/20 Unknown Urine pH 8.0 (5.0-7.0) H 10/28/20 Unknown Ur Specific [place] 1.043 (1.003-1.030) H 10/28/20 Unknown Urine Protein <15 mg/dl mg/dL (Negative) 10/28/20 Unknown Urine Glucose (UA) Neg mg/dL (Negative) 10/28/20 Unknown Urine Ketones 20 mg/dL (Negative) 10/28/20 Unknown Urine Blood Neg (Negative) 10/28/20 Unknown Urine Nitrite Neg (Negative) 10/28/20 Unknown Urine Bilirubin Neg (Negative) 10/28/20 Unknown Urine Urobilinogen < 2.0 mg/dL (<2.0) 10/28/20 Unknown Ur Leukocyte Esterase Neg (Negative) 10/28/20 Unknown Urine WBC (Auto) 1.0 /HPF (0.0-6.0) 10/28/20 Unknown Urine RBC (Auto) 5.0 /HPF (0.0-6.0) 10/28/20 Unknown U Epithel Cells (Auto) 3.0 /HPF (0-13.0) 10/28/20 Unknown Urine Mucus Few /HPF 10/28/20 Unknown Plasma/Serum Alcohol < 0.01 % (0-0.07) 10/28/20 10:53 Microbiology: Microbiology 10/28/20 10:53 Peripheral/Venous Blood Culture - Preliminary Culture in Progress 10/28/20 10:53 Peripheral/Venous Blood Culture - Preliminary Culture in Progress - Imaging and Cardiology Imaging and Cardiology: CT abdomen and pelvis Fluid-filled loops of small bowel with mild mucosal enhancement is suggestive of enteritis. there is also fluid within the distal descending and sigmoid colon Neck CTA No significant abnormality Head CTA No significant abnormality Head CT No intracranial or intracerebral hemorrhage or stroke mimics No acute or subacute infarction Chest x-ray No acute cardiopulmonary abnormality Assessment and Plan Advance Directives: Yes (Full code) VTE prophylaxis?: Chemical Plan of care discussed with patient/family: Yes - Patient Problems (1) SIRS (systemic inflammatory response syndrome) Current Visit: Yes Status: Acute Plan to address problem: Symptom complex consistent with sepsis (2) Acute gastroenteritis Current Visit: Yes Status: Acute Plan to address problem: Probable viral etiology N.p.o. IV fluids GI consult No small bowel obstruction Symptomatic treatment (3) Elevated lactic acid level Current Visit: Yes Status: Acute Plan to address problem: Probably secondary to vomiting No signs of infection and chest/urine (4) Hyponatremia Current Visit: Yes Status: Acute Plan to address problem: IV fluids for now (5) DVT prophylaxis Current Visit: Yes Status: Acute Plan to address problem: On heparin and GI prophylaxis
[2020-10-28] MEDS ORDERED: ACETAMINOPHEN 325 MG TAB PO PRN (21:28)
[2020-10-28] MEDS ORDERED: HYDROmorphone 1 MG/1 ML INJ IV PRN (21:28)
[2020-10-28] MEDS: D5W/0.9% NACL 1,000 ML IV SCH (22:47)
[2020-10-28] MEDS: PIPERACIL/TAZOBACTA 4.5/NS 100 4.5 GM/100 ML VIAL IV SCH (22:48)
[2020-10-28] MEDS: FAMOTIDINE 20 MG/2 ML INJ IV SCH (22:48)
[2020-10-28] MEDS: HEPARIN 5,000 UNIT/1 ML VIAL SUB-Q SCH (22:48)
[2020-10-29] MEDS ORDERED: ACETAMINOPHEN 650 MG RECT SUPP PR PRN (04:49)
[2020-10-29] MEDS: PIPERACIL/TAZOBACTA 4.5/NS 100 4.5 GM/100 ML VIAL IV SCH (06:06)
[2020-10-29] MEDS: D5W/0.9% NACL 1,000 ML IV SCH ×2 (06:49→15:56)
[2020-10-29 07:33] LABS: Basophils % (Auto) 0.3 % (0.0-1.8); Hematocrit 37.3 % (30.3-42.9); Hemoglobin 12.7 gm/dl (10.1-14.3); Lymphocytes # (Auto) 0.5 K/mm3 (1.2-5.4); Lymphocytes % (Auto) 10.8 % (13.4-35.0); Mean Corpuscular HGB Conc 34 % (30-34); Mean Corpuscular Volume 91 fl (79-97); Monocytes # (Auto) 0.3 K/mm3 (0.0-0.8); Monocytes % (Auto) 6.7 % (0.0-7.3); Platelet Count 142 K/mm3 (140-440); Red Blood Count 4.12 M/mm3 (3.65-5.03); Red Cell Distribution Width 14.5 % (13.2-15.2)
[2020-10-29 08:02] LABS: Alanine Aminotransferase 11 units/L (7-56); Albumin 3.7 g/dL (3.9-5); Blood Urea Nitrogen 12 mg/dL (7-17); Calcium 8.7 mg/dL (8.4-10.2); Hemolysis Index 0
[2020-10-29 08:03] LABS: BUN/Creatinine Ratio 17
--- NOTE | 2020-10-29 09:07 | Progress Note ---
Assessment and Plan Assessment and plan: --SIRS (systemic inflammatory response syndrome) Current Visit: Yes Status: Acute Plan to address problem: Empiric antibiotics follow cultures --Acute gastroenteritis/possible colitis Current Visit: Yes Status: Acute Plan to address problem: IV fluids, antiemetics, supportive care GI evaluation noted and appreciated Possible infectious diarrhea GI recommend check stool for C. difficile Will change antibiotics to Flagyl and Levaquin supportive care CT abdomen and pelvis fluid-filled loops of small bowel with mild mucosal enhancement suggestive of enteritis also fluid within the distal descending and sigmoid colon distal descending and sigmoid colon --Lactic acidosis elevated lactic acid level Current Visit: Yes Status: Acute Plan to address problem: Resolved --Hypokalemia; Current Visit: Yes Status: Acute Plan to address problem: replenished per protocol With oral KCl, Follow electrolytes --Neuro symptoms; Current Visit: Yes Status: Acute Plan to address problem: telemetry neurologist evaluated the patient recommend neuro work-up Patient has no neuro symptoms We will hold off further neuro work-up CT head without contrast CTA neck CTA head negative; PT evaluation --Hyponatremia Current Visit: Yes Status: Acute Plan to address problem: Significant improvement, continue IV fluids --DVT prophylaxis Current Visit: Yes Status: Acute Plan to address problem: On heparin and GI prophylaxis We will closely monitor patient and adjust management as needed, Plan of care reviewed with the patient and her nurse History Interval history: I have seen and examined the patient at the bedside Patient's chart and medications reviewed Patient was admitted with intractable nausea vomiting and diarrhea Symptoms slightly improved still continues to have nausea vomiting and even diarrhea Patient complains of generalized weakness, abdominal pain Vital signs noted Hospitalist Physical - Constitutional Vitals: Temp Pulse Resp BP Pulse Ox 98.1 F 65 16 142/72 96 10/29/20 04:55 10/29/20 04:55 10/29/20 04:55 10/29/20 04:55 10/29/20 04:55 General appearance: Present: mild distress, well-nourished - EENT Eyes: Present: PERRL, EOM intact - Neck Neck: Present: supple, normal ROM - Respiratory Respiratory effort: normal Respiratory: bilateral: diminished, negative: rales, rhonchi, wheezing - Cardiovascular Rhythm: regular Heart Sounds: Present: S1 & S2 - Extremities Extremities: no ischemia, No edema - Abdominal General gastrointestinal: soft, non-tender, non-distended, normal bowel sounds - Integumentary Integumentary: Present: clear, warm - Psychiatric Psychiatric: appropriate mood/affect, cooperative - Neurologic Neurologic: moves all extremities HEART Score - HEART Score Troponin: Troponin T < 0.010 ng/mL (0.00-0.029) 10/28/20 10:53 Results - Labs CBC & Chem 7: 10/29/20 06:56 10/29/20 06:56 Labs: Laboratory Last Values WBC 4.2 K/mm3 (4.5-11.0) L 10/29/20 06:56 RBC 4.12 M/mm3 (3.65-5.03) 10/29/20 06:56 Hgb 12.7 gm/dl (10.1-14.3) 10/29/20 06:56 Hct 37.3 % (30.3-42.9) 10/29/20 06:56 MCV 91 fl (79-97) 10/29/20 06:56 MCH 31 pg (28-32) 10/29/20 06:56 MCHC 34 % (30-34) 10/29/20 06:56 RDW 14.5 % (13.2-15.2) 10/29/20 06:56 Plt Count 142 K/mm3 (140-440) 10/29/20 06:56 Lymph % (Auto) 10.8 % (13.4-35.0) L 10/29/20 06:56 [place] % (Auto) 6.7 % (0.0-7.3) 10/29/20 06:56 Eos % (Auto) 0.0 % (0.0-4.3) 10/29/20 06:56 Baso % (Auto) 0.3 % (0.0-1.8) 10/29/20 06:56 Lymph # (Auto) 0.5 K/mm3 (1.2-5.4) L 10/29/20 06:56 [place] # (Auto) 0.3 K/mm3 (0.0-0.8) 10/29/20 06:56 Eos # (Auto) 0.0 K/mm3 (0.0-0.4) 10/29/20 06:56 Baso # (Auto) 0.0 K/mm3 (0.0-0.1) 10/29/20 06:56 Seg Neutrophils % 82.2 % (40.0-70.0) H 10/29/20 06:56 Seg Neutrophils # 3.4 K/mm3 (1.8-7.7) 10/29/20 06:56 PT 13.1 Sec. (12.2-14.9) 10/28/20 10:53 INR 1.00 (0.87-1.13) 10/28/20 10:53 APTT 28.5 Sec. (24.2-36.6) 10/28/20 10:53 Thrombin Time 17.1 Sec. (15.1-19.6) 10/28/20 10:53 Sodium 144 mmol/L (137-145) D 10/29/20 06:56 Potassium 3.4 mmol/L (3.6-5.0) L 10/29/20 06:56 Chloride 106.7 mmol/L (98-107) 10/29/20 06:56 Carbon Dioxide 27 mmol/L (22-30) 10/29/20 06:56 Anion Gap 14 mmol/L 10/29/20 06:56 BUN 12 mg/dL (7-17) 10/29/20 06:56 Creatinine 0.7 mg/dL (0.6-1.2) 10/29/20 06:56 Estimated GFR > 60 ml/min 10/29/20 06:56 BUN/Creatinine Ratio 17 % 10/29/20 06:56 Glucose 102 mg/dL (65-100) H 10/29/20 06:56 POC Glucose 107 mg/dL (70-105) H 10/29/20 07:52 Hemoglobin A1c 5.3 % (4-6) 10/28/20 10:53 Lactic Acid 2.00 mmol/L (0.7-2.0) 10/28/20 12:52 Calcium 8.7 mg/dL (8.4-10.2) 10/29/20 06:56 Magnesium 1.80 mg/dL (1.7-2.3) 10/28/20 10:53 Total Bilirubin 0.30 mg/dL (0.1-1.2) 10/29/20 06:56 AST 12 units/L (5-40) 10/29/20 06:56 ALT 11 units/L (7-56) 10/29/20 06:56 Alkaline Phosphatase 57 units/L (35-129) 10/29/20 06:56 Total Creatine Kinase 53 units/L (30-135) 10/28/20 10:53 CK-MB (CK-2) < 1.0 ng/mL (0.0-4.0) 10/28/20 10:53 CK-MB (CK-2) Rel Index 1.8 (0-4) 10/28/20 10:53 Troponin T < 0.010 ng/mL (0.00-0.029) 10/28/20 10:53 Total Protein 6.1 g/dL (6.3-8.2) L 10/29/20 06:56 Albumin 3.7 g/dL (3.9-5) L 10/29/20 06:56 Albumin/Globulin Ratio 1.5 % 10/29/20 06:56 Urine Color Yellow (Yellow) 10/28/20 Unknown Urine Turbidity Clear (Clear) 10/28/20 Unknown Urine pH 8.0 (5.0-7.0) H 10/28/20 Unknown Ur Specific [place] 1.043 (1.003-1.030) H 10/28/20 Unknown Urine Protein <15 mg/dl mg/dL (Negative) 10/28/20 Unknown Urine Glucose (UA) Neg mg/dL (Negative) 10/28/20 Unknown Urine Ketones 20 mg/dL (Negative) 10/28/20 Unknown Urine Blood Neg (Negative) 10/28/20 Unknown Urine Nitrite Neg (Negative) 10/28/20 Unknown Urine Bilirubin Neg (Negative) 10/28/20 Unknown Urine Urobilinogen < 2.0 mg/dL (<2.0) 10/28/20 Unknown Ur Leukocyte Esterase Neg (Negative) 10/28/20 Unknown Urine WBC (Auto) 1.0 /HPF (0.0-6.0) 10/28/20 Unknown Urine RBC (Auto) 5.0 /HPF (0.0-6.0) 10/28/20 Unknown U Epithel Cells (Auto) 3.0 /HPF (0-13.0) 10/28/20 Unknown Urine Mucus Few /HPF 10/28/20 Unknown Plasma/Serum Alcohol < 0.01 % (0-0.07) 10/28/20 10:53 Microbiology: Microbiology 10/28/20 10:53 Peripheral/Venous Blood Culture - Preliminary Culture in Progress 10/28/20 10:53 Peripheral/Venous Blood Culture - Preliminary Culture in Progress Hahn/IV: Voiding Method Toilet Active Medications - Current Medications Current Medications: Generic Name Dose Route Start Last Admin Trade Name Freq PRN Reason Stop Dose Admin Acetaminophen 650 mg 10/28/20 21:28 Acetaminophen 325 Mg Tab PO Q4H PRN Pain MILD(1-3)/Fever >100.5/POWELL Acetaminophen 650 mg 10/29/20 04:49 Acetaminophen 650 Mg Rect Supp MO Q4H PRN Pain, Mild (1-3) Famotidine 20 mg 10/28/20 22:00 10/28/20 22:48 Famotidine 20 Mg/2 Ml Inj IV 20 mg BID PATRICIA Administration Heparin Sodium (Porcine) 5,000 unit 10/28/20 22:00 10/28/20 22:48 Heparin 5,000 Unit/1 Ml Vial SUB-Q 5,000 unit Q12HR PATRICIA Administration Hydromorphone HCl 0.5 mg 10/28/20 21:28 10/28/20 22:53 Hydromorphone 1 Mg/1 Ml Inj IV 0.5 mg Q3H PRN Administration Pain , Severe (7-10) Dextrose/Sodium Chloride 1,000 mls @ 125 mls/hr 10/28/20 22:00 10/29/20 06:49 D5ns IV 125 mls/hr DIRECT PATRICIA Administration Piperacillin Sod/Tazobactam Sod 4.5 gm in 100 mls @ 200 mls/hr 10/28/20 22:00 10/29/20 06:49 Zosyn/Ns 4.5gm/100ml IV Infused Q8HR PATRICIA Infusion Protocol Ondansetron HCl 4 mg 10/28/20 21:28 10/29/20 06:54 Ondansetron 4 Mg/2 Ml Inj IV 4 mg Q8H PRN Administration Nausea And Vomiting Sodium Chloride 10 ml 10/28/20 22:00 10/28/20 22:53 Sodium Chloride 0.9% 10 Ml Flush Syringe IV 10 ml BID PATRICIA Administration Sodium Chloride 10 ml 10/28/20 21:28 Sodium Chloride 0.9% 10 Ml Flush Syringe IV PRN PRN LINE FLUSH
[2020-10-29] MEDS: FAMOTIDINE 20 MG/2 ML INJ IV SCH (09:41)
[2020-10-29] MEDS: HEPARIN 5,000 UNIT/1 ML VIAL SUB-Q SCH (09:41)
--- NOTE | 2020-10-29 11:44 | Gastroenterology Consultation ---
History of Present Illness - Reason for Consult Consult date: 10/29/20 nausea/vomiting, diarrhea Requesting physician: DARIN ENGLISH - History of Present Illness This is a 55 yo female with pmh of HTN admitted overnight for abdominal pain, nausea/vomiting and diarrhea x 1-2 days. Patient reports having chronic nausea for the past 1 year. She saw GI doctor at [place] and had EGD earlier this year and told it showed large folds in the stomach. Yesterday morning, she had worsening nausea and multiple episodes of vomiting along with watery diarrhea. No blood in the stools. Reports twisting knot like abdominal pain in her upper abdomen. Last colonoscopy years ago and told she had polyps. She feels hungry today and wants to try to eat. No additional vomiting today. medication list reviewed. Past History Past Medical History: No medical history, hypertension Past Surgical History: No surgical history Social history: lives with family, full code Family history: no significant family history Medications and Allergies Allergies Allergy/AdvReac Type Severity Reaction Status Date / Time morphine AdvReac Headache Verified 10/28/20 11:07 Active Meds: Active Medications Acetaminophen (Acetaminophen 325 Mg Tab) 650 mg PO Q4H PRN PRN Reason: Pain MILD(1-3)/Fever >100.5/POWELL Acetaminophen (Acetaminophen 650 Mg Rect Supp) 650 mg WI Q4H PRN PRN Reason: Pain, Mild (1-3) Famotidine (Famotidine 20 Mg/2 Ml Inj) 20 mg IV BID [facility] Last Admin: 10/29/20 09:41 Dose: 20 mg Documented by: Heparin Sodium (Porcine) (Heparin 5,000 Unit/1 Ml Vial) 5,000 unit SUB-Q Q12HR [facility] Last Admin: 10/29/20 09:41 Dose: 5,000 unit Documented by: Hydromorphone HCl (Hydromorphone 1 Mg/1 Ml Inj) 0.5 mg IV Q3H PRN PRN Reason: Pain , Severe (7-10) Last Admin: 10/28/20 22:53 Dose: 0.5 mg Documented by: Dextrose/Sodium Chloride (D5ns) 1,000 mls @ 125 mls/hr IV DIRECT [facility] Last Admin: 10/29/20 06:49 Dose: 125 mls/hr Documented by: Piperacillin Sod/Tazobactam Sod (Zosyn/Ns 4.5gm/100ml) 4.5 gm in 100 mls @ 200 mls/hr IV Q8HR PATRICIA; Protocol Last Infusion: 10/29/20 06:49 Dose: Infused Documented by: Ondansetron HCl (Ondansetron 4 Mg/2 Ml Inj) 4 mg IV Q8H PRN PRN Reason: Nausea And Vomiting Last Admin: 10/29/20 06:54 Dose: 4 mg Documented by: Sodium Chloride (Sodium Chloride 0.9% 10 Ml Flush Syringe) 10 ml IV BID PATRICIA Last Admin: 10/29/20 09:42 Dose: 10 ml Documented by: Sodium Chloride (Sodium Chloride 0.9% 10 Ml Flush Syringe) 10 ml IV PRN PRN PRN Reason: LINE FLUSH Review of Systems - Review of Systems All systems: negative Constitutional: weight loss Eyes: deferred Cardiovascular: no chest pain Gastrointestinal: abdominal pain, nausea, vomiting, diarrhea, no BRBPR, no harrison gianna Neurological: weakness Psychiatric: no anxiety Endocrine: no cold intolerance Hematologic/Lymphatic: no easy bruising Allergic/Immunologic: no wheezing Exam - Constitutional Vital Signs: Temp Pulse Resp BP Pulse Ox 98.1 F 65 16 142/72 96 10/29/20 04:55 10/29/20 04:55 10/29/20 04:55 10/29/20 04:55 10/29/20 04:55 General appearance: no acute distress - EENT Eyes: EOM intact ENT: hearing intact - Neck Neck: supple - Respiratory Respiratory effort: normal - Cardiovascular Rhythm: regular Heart Sounds: Present: S1 & S2 - Gastrointestinal General gastrointestinal: Present: soft, tender, non-distended, normal bowel sounds - Neurologic Neurological: alert and oriented x3 - Labs CBC & Chem 7: 10/29/20 06:56 10/29/20 06:56 Lab Results: Laboratory Results - last 24 hr 10/28/20 10/28/20 10/28/20 10:53 10:53 12:52 WBC RBC Hgb Hct MCV MCH MCHC RDW Plt Count Lymph % (Auto) Orange % (Auto) Eos % (Auto) Baso % (Auto) Lymph # (Auto) Orange # (Auto) Eos # (Auto) Baso # (Auto) Seg Neutrophils % Seg Neutrophils # Sodium Potassium Chloride Carbon Dioxide Anion Gap BUN Creatinine Estimated GFR BUN/Creatinine Ratio Glucose POC Glucose Hemoglobin A1c 5.3 Lactic Acid 2.00 Calcium Total Bilirubin AST ALT Alkaline Phosphatase Total Protein Albumin Albumin/Globulin Ratio Urine Color Urine Turbidity Urine pH Ur Specific [place] Urine Protein Urine Glucose (UA) Urine Ketones Urine Blood Urine Nitrite Urine Bilirubin Urine Urobilinogen Ur Leukocyte Esterase Urine WBC (Auto) Urine RBC (Auto) U Epithel Cells (Auto) Urine Mucus Plasma/Serum Alcohol < 0.01 10/28/20 10/29/20 10/29/20 Unknown 06:56 06:56 WBC 4.2 L RBC 4.12 Hgb 12.7 Hct 37.3 MCV 91 MCH 31 MCHC 34 RDW 14.5 Plt Count 142 Lymph % (Auto) 10.8 L Orange % (Auto) 6.7 Eos % (Auto) 0.0 Baso % (Auto) 0.3 Lymph # (Auto) 0.5 L Orange # (Auto) 0.3 Eos # (Auto) 0.0 Baso # (Auto) 0.0 Seg Neutrophils % 82.2 H Seg Neutrophils # 3.4 Sodium 144 D Potassium 3.4 L Chloride 106.7 Carbon Dioxide 27 Anion Gap 14 BUN 12 Creatinine 0.7 Estimated GFR > 60 BUN/Creatinine Ratio 17 Glucose 102 H POC Glucose Hemoglobin A1c Lactic Acid Calcium 8.7 Total Bilirubin 0.30 AST 12 ALT 11 Alkaline Phosphatase 57 Total Protein 6.1 L Albumin 3.7 L Albumin/Globulin Ratio 1.5 Urine Color Yellow Urine Turbidity Clear Urine pH 8.0 H Ur Specific [place] 1.043 H Urine Protein <15 mg/dl Urine Glucose (UA) Neg Urine Ketones 20 Urine Blood Neg Urine Nitrite Neg Urine Bilirubin Neg Urine Urobilinogen < 2.0 Ur Leukocyte Esterase Neg Urine WBC (Auto) 1.0 Urine RBC (Auto) 5.0 U Epithel Cells (Auto) 3.0 Urine Mucus Few Plasma/Serum Alcohol 10/29/20 07:52 WBC RBC Hgb Hct MCV MCH MCHC RDW Plt Count Lymph % (Auto) Orange % (Auto) Eos % (Auto) Baso % (Auto) Lymph # (Auto) Orange # (Auto) Eos # (Auto) Baso # (Auto) Seg Neutrophils % Seg Neutrophils # Sodium Potassium Chloride Carbon Dioxide Anion Gap BUN Creatinine Estimated GFR BUN/Creatinine Ratio Glucose POC Glucose 107 H Hemoglobin A1c Lactic Acid Calcium Total Bilirubin AST ALT Alkaline Phosphatase Total Protein Albumin Albumin/Globulin Ratio Urine Color Urine Turbidity Urine pH Ur Specific [place] Urine Protein Urine Glucose (UA) Urine Ketones Urine Blood Urine Nitrite Urine Bilirubin Urine Urobilinogen Ur Leukocyte Esterase Urine WBC (Auto) Urine RBC (Auto) U Epithel Cells (Auto) Urine Mucus Plasma/Serum Alcohol - Imaging CT Scan: report reviewed Assessment and Plan - Patient Problems (1) Acute gastroenteritis Current Visit: Yes Status: Acute Plan to address problem: - 2 day h/o nausea/vomiting/diarrhea/epigastric pain. - prior h/o chronic nausea x 1 year. - work up at [facility] earlier this year with EGD showing thick folds. - CT showing signs of acute gastroenteritis with fluid filled loops of bowels. - initially has elevated lactic acid trending down now. - suspect infectious gastroenteritis Rec - cont with empiric antibiotics - trial of clear liquids today and advance as tolerated - check stool studies for c diff. recent use of antibiotics earlier this year for sinus infection. - antiemetics prn - supportive care
--- NOTE | 2020-10-29 15:34 | Discharge Summary ---
Providers - Providers Date of Admission: 10/28/20 11:41 Date of discharge: 10/29/20 Attending physician: DARIN ENGLISH 10/28/20 21:28 Consult to Physician [CONS] Routine Comment: Consulting Provider: LATRICE PRATT Physician Instructions: Reason For Exam: Enteritis Primary care physician: [facility] Hospitalization Reason for admission: Intractable nausea vomiting diarrhea and abdominal pain Condition: Fair Pertinent studies: CT head without contrast CTA neck CTA head negative; CT abdomen and pelvis fluid-filled loops of small bowel with mild mucosal enhancement suggestive of enteritis also fluid within the distal descending and sigmoid colon distal descending and sigmoid colon Hospital course: 55-year-old female patient was admitted through emergency room with intractable nausea vomiting abdominal pain and diarrhea. Patient reported to the ER physician some neuro symptoms ER doctor consulted telemetry neurologist, had neuro work-up which was negative, patient was admitted to the hospital placed n.p.o. status CT abdomen and pelvis findings consistent with enteritis and possible colitis patient was placed n.p.o. IV fluids empiric IV antibiotics patient also has lactic acidosis subsequently evaluated by GI felt this is infectious diarrhea and as patient had recent history of antibiotic use recommended to check C. difficile. Patient's antibiotics changed to Flagyl and Levaquin mild hyponatremia and hypokalemia corrected appropriately. I discussed the case with [place] physician Dr. Milli Blanco Who recommended to transfer the patient to [facility] Final diagnosis; --Acute gastroenteritis/possible colitis Patient is n.p.o. status , start clear liquids IV fluids, antiemetics, supportive care GI evaluated the patient and recommend to check C. difficile Will change antibiotics to Flagyl and Levaquin supportive care. Clear liquids advance as tolerated --SIRS (systemic inflammatory response syndrome) Secondary to enteritis /colitis empiric antibiotics follow cultures CT abdomen and pelvis fluid-filled loops of small bowel with mild mucosal enhancement suggestive of enteritis also fluid within the distal descending and sigmoid colon distal descending and sigmoid colon --Lactic acidosis elevated lactic acid level Probably due to gastro enteritis/colitis Treat the underlying cause, IV fluids --Hypokalemia; replenished per protocol With oral KCl, Follow electrolytes --Hyponatremia Significant improvement, continue IV fluids --Neuro symptoms; reported to the ER physician: telemetry neurologist evaluated the patient in ER recommend neuro work-up However patient does not have neuro symptoms Neuro work-up done so far is negative We will hold off further neuro work-up CT head without contrast CTA neck CTA head negative; PT evaluation Discussed with [place] physician, Dr. Milli Blanco who requested transfer the patient to their facility For further evaluation and management Patient is hemodynamically stable at discharge and transfer Disposition: DC-01 TO HOME OR SELFCARE Final Discharge Diagnosis (Prints w/discharge instructions): Discharge diagnosis. --Acute gastroenteritis/colitis. --SIRS. --Lactic acidosis. --Hypokalemia. --Hyponatremia. --Abdominal pain. --Neuro symptoms Time spent for discharge: 34 min Core Measure Documentation - Palliative Care Palliative Care/ Comfort Measures: Not Applicable - Core Measures Any of the following diagnoses?: none Exam - Constitutional Vitals: Temp Pulse Resp BP Pulse Ox 98.1 F 65 17 142/72 96 10/29/20 04:55 10/29/20 04:55 10/29/20 08:00 10/29/20 04:55 10/29/20 04:55 General appearance: Present: mild distress, well-nourished - EENT Eyes: Present: PERRL, EOM intact - Neck Neck: Present: supple, normal ROM - Respiratory Respiratory effort: normal Respiratory: bilateral: diminished, negative: rales, rhonchi, wheezing - Cardiovascular Rhythm: regular Heart Sounds: Present: S1 & S2 - Extremities Extremities: no ischemia, No edema - Abdominal General gastrointestinal: Present: soft, non-tender, non-distended, normal bowel sounds - Integumentary Integumentary: Present: clear, warm - Musculoskeletal Musculoskeletal: strength equal bilaterally, generalized weakness - Psychiatric Psychiatric: appropriate mood/affect, cooperative - Neurologic Neurologic: moves all extremities Plan Activity: advance as tolerated, fall precautions Diet: other (Clear liquids) Additional Instructions: Patient is being transferred to [facility] for further evaluation and management, as recommended by [place] physician Dr. Milli Blanco. Follow up with: PRIMARY CAREMD [Primary Care Provider] - 3-5 Days
[2020-10-29] MEDS ORDERED: levoFLOXacin 750 MG TAB PO SCH (16:00)
[2020-10-29 20:59] VITALS: BP 190/80
[2020-10-29] MEDS ORDERED: LOSARTAN 50 MG TAB PO SCH (21:00)
[2020-10-29] MEDS ORDERED: metroNIDAZOLE 500 MG TAB PO SCH (22:00)
[2020-10-30] MEDS ORDERED: PANTOPRAZOLE 40 MG INJ IV SCH (10:00)
--- NOTE | 2020-10-31 08:40 | Electrocardiograph Report ---
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
== END 2020-10-29 21:00 | disposition short-term general hospital (02) ==
LOC: ED 10:07 → 3A 11:41 → INTOOBSV 11:41 → UNDODISOB 10-29 21:00
PROVIDERS: ADMIT Internal Medicine; ATTEND Internal Medicine
DX: K52.9 Noninfective gastroenteritis and colitis, unspecified (principal); R65.10 Systemic inflammatory response syndrome (SIRS) of non-infectious origin without acute organ dysfunction; E87.2 Acidosis; E87.1 Hypo-osmolality and hyponatremia; E87.6 Hypokalemia; I95.9 Hypotension, unspecified; R53.1 Weakness; R74.02 Elevation of levels of lactic acid dehydrogenase [LDH]; R00.1 Bradycardia, unspecified; Z87.898 Personal history of other specified conditions; Z79.899 Other long term (current) drug therapy
CPT/HCPCS: 36415; 70450; 70496; 70498; 71045; 74177; 80053; 81001; 82140; 82550; 82553; 82962; 83036; 83735; 84484; 85025; 85610; 85670; 85730; 87040; 87086; 87493; 93005; 96361; 96365; 96366; 96367; 96368; 96372; 96375; 96376; 99291; G0378; J1170; J1644; J1956; J2405; J2543; J2765; J7042; J7120; Q9967; 80320; 87324; G0480

== ENCOUNTER 2021-08-22 12:35 | Emergency (ER) | payer OTHER ==
[2021-08-22] MEDS ORDERED: KETOROLAC 30 MG/1 ML INJ IM ONE (15:54)
[2021-08-22] MEDS ORDERED: SODIUM CHLORIDE 0.9% 1000 ML 1,000 ML IV ONE (15:54)
[2021-08-22] MEDS ORDERED: ONDANSETRON 4 MG/2 ML INJ IV ONE (15:54)
--- NOTE | 2021-08-22 16:13 | Emergency Department Report ---
ED General Adult HPI - General Chief complaint: Abdominal Pain Stated complaint: FLANK PAIN Time Seen by Provider: 08/22/21 15:52 Source: patient, EMS Mode of arrival: Stretcher Limitations: No Limitations - History of Present Illness Initial comments: 56-year-old -[place] female presents to the emergency room for 3-day history of intermittent left flank pain that radiates to her pelvic. She states that she started having chest pain 30 minutes ago. Patient reports she was seen yesterday at [place] urgent care and had a CT scan. Patient states that she was placed on Keflex for urinary tract infection. Patient reports that she has had a hysterectomy. Onset/Timin -: days(s) Location: back, left Radiation: abdomen Severity scale (0 -10): 10 Quality: sharp Consistency: constant Improves with: none Associated Symptoms: chest pain, nausea/vomiting Treatments Prior to Arrival: none - Related Data Previous Rx's Medication Instructions Recorded Last Taken Type D5w/0.9% NaCl [D5ns] 100 ml IV DIRECT bag 10/29/20 Unknown Rx HYDROmorphone [Dilaudid] 0.5 mg IV Q3H PRN syringe 10/29/20 Unknown Rx Pantoprazole [Protonix INJ] 40 mg IV QDAY vial 10/29/20 Unknown Rx Sodium Chloride 0.9% Int [Sodium 10 ml IV BID syringe 10/29/20 Unknown Rx Chloride Flush Syringe 10 ml] levoFLOXacin [Levaquin TAB] 750 mg PO Q24HR tablet 10/29/20 Unknown Rx metroNIDAZOLE [Flagyl TAB] 500 mg PO Q8HR tablet 10/29/20 Unknown Rx Ketorolac [Toradol] 10 mg PO Q6H PRN #20 08/22/21 Unknown Rx Oxycodone HCl/Acetaminophen 1 each PO Q6HR PRN #20 08/22/21 Unknown Rx [Percocet 7.5/325 mg] Tamsulosin [Flomax] 0.4 mg PO QDAY #5 cap 08/22/21 Unknown Rx Allergies Allergy/AdvReac Type Severity Reaction Status Date / Time morphine AdvReac Headache Verified 08/22/21 12:38 ED Review of Systems ROS: Stated complaint: FLANK PAIN Other details as noted in HPI Comment: All other systems reviewed and negative ED Past Medical Hx - Past Medical History Previous Medical History?: Yes Hx Hypertension: Yes Hx Diabetes: Yes - Social History Smoking Status: Never Smoker - Medications Home Medications: Home Medications Medication Instructions Recorded Confirmed Last Taken Type D5w/0.9% NaCl [D5ns] 100 ml IV DIRECT bag 10/29/20 Unknown Rx HYDROmorphone [Dilaudid] 0.5 mg IV Q3H PRN syringe 10/29/20 Unknown Rx Pantoprazole [Protonix INJ] 40 mg IV QDAY vial 10/29/20 Unknown Rx Sodium Chloride 0.9% Int [Sodium 10 ml IV BID syringe 10/29/20 Unknown Rx Chloride Flush Syringe 10 ml] levoFLOXacin [Levaquin TAB] 750 mg PO Q24HR tablet 10/29/20 Unknown Rx metroNIDAZOLE [Flagyl TAB] 500 mg PO Q8HR tablet 10/29/20 Unknown Rx Ketorolac [Toradol] 10 mg PO Q6H PRN #20 08/22/21 Unknown Rx Oxycodone HCl/Acetaminophen 1 each PO Q6HR PRN #20 08/22/21 Unknown Rx [Percocet 7.5/325 mg] Tamsulosin [Flomax] 0.4 mg PO QDAY #5 cap 08/22/21 Unknown Rx ED Physical Exam - General Limitations: No Limitations General appearance: alert, in no apparent distress - Head Head exam: Present: atraumatic, normocephalic - Eye Eye exam: Present: normal appearance - ENT ENT exam: Present: mucous membranes moist - Neck Neck exam: Present: normal inspection, full ROM - Respiratory Respiratory exam: Present: normal lung sounds bilaterally. Absent: respiratory distress - Cardiovascular Cardiovascular Exam: Present: regular rate, normal rhythm. Absent: systolic murmur, diastolic murmur, rubs, gallop - GI/Abdominal GI/Abdominal exam: Present: soft, tenderness, normal bowel sounds - Back Exam Back exam: Present: CVA tenderness (L) - Neurological Exam Neurological exam: Present: alert, oriented X3 - Psychiatric Psychiatric exam: Present: normal affect, normal mood - Skin Skin exam: Present: warm, dry, intact, normal color. Absent: rash ED Course Vital Signs 08/22/21 12:36 Temperature 97.4 F L Pulse Rate 64 Respiratory 18 Rate Blood Pressure 190/79 [Left] O2 Sat by Pulse 95 Oximetry - Reevaluation(s) Reevaluation #1: 08/22/21 17:32 Patient has completed her fluids Zofran and Toradol and reports that she still having pain. Discussed with patient order a CT with contrast of abdomen and pelvis. Patient been ordered acetaminophen for pain management as she is pushpa rgic to morphine and had to Toradol already. ED Medical Decision Making - Lab Data Result diagrams: 08/22/21 16:51 08/22/21 16:51 - Radiology Data Radiology results: report reviewed [facility] [address] [id number] Cat Scan Report Signed Patient: DEMETRIA GEORGE MR#: [id number] : 1965 Acct:[id number] Age/Sex: 56 / F ADM Date: 08/22/21 Loc: ED Attending Dr: Ordering Physician: NAVEEN BLANCO Date of Service: 08/22/21 Procedure(s): CT abdomen pelvis w con Accession Number(s): [id number] cc: NAVEEN BLANCO CT ABDOMEN AND PELVIS WITH CONTRAST INDICATION / CLINICAL INFORMATION: LEFT FLANK PAIN. TECHNIQUE: Axial CT images were obtained through the abdomen and pelvis after 100 cc Omnipaque [address] scans at this location are performed using CT dose reduction for ALARA by means of automated exposure control. COMPARISON: CT abdomen and pelvis with contrast from 10/28/2020. FINDINGS: LOWER CHEST: No significant abnormality. LIVER: No significant abnormality. GALLBLADDER: Probable vicarious excretion of previously administered contrast versus sludge is seen in the gallbladder with possible subcentimeter gallbladder polyps. No acute findings. BILE DUCTS: No significant abnormality. PANCREAS: No significant abnormality. SPLEEN: No significant abnormality. ADRENALS: No significant abnormality. RIGHT KIDNEY/URETER: No significant abnormality. LEFT KIDNEY/URETER: 2 stones are seen at the left UVJ measuring up to 4 mm with secondary moderate hydroureteronephrosis. There is mild generalized periureteral and perinephric fat stranding. A nonobstructive 2-3 mm left lower renal pole stone is noted. No other significant abnormality. STOMACH/SMALL BOWEL: No significant abnormality. COLON: No significant abnormality. APPENDIX: No significant abnormality. PERITONEUM: No free fluid. No free air. No fluid collection. LYMPH NODES: No significant adenopathy. VASCULATURE: There is mild generalized atherosclerosis without other significant abnormalities. URINARY BLADDER: No significant abnormality. REPRODUCTIVE ORGANS: No significant abnormality. Prior hysterectomy. ADDITIONAL FINDINGS: None. BONES: No significant abnormality IMPRESSION: 1. Moderately obstructive left ureteral stones measuring up to 4 mm. 2. Additional findings as above. Signer Name: Kraig Callahan MD Signed: 08/22/2021 7:53 PM Workstation Name: [id number] Transcribed By: MELISSA Dictated By: Kraig Callahan MD Electronically Authenticated By: Kraig Callahan MD Signed Date/Time: 08/22/211952 DD/ 47 TD/TT: Print - Medical Decision Making 56-year-old -[place] female presents to the emergency room for 3-day history of intermittent left flank pain that radiates to her pelvic. She states that she started having chest pain 30 minutes ago. Patient reports she was seen yesterday at [place] urgent care and had a CT scan. Patient states that she was placed on Keflex for urinary tract infection. Patient reports that she has had a hysterectomy. Spoke to the [place] doctor she reports that both CT scan show kidney stones that were punctuated with no hydronephrosis no obstruction. Also shows some diverticulosis but no diverticulitis. Urinalysis from them was 20-50 WBCs greater than 50 RBCs CBC was nonactionable creatinine was 0.7 potassium was 3.4. Phone number from [place] was [phone] Urinalysis CBC CMP troponin EKG chest x-ray has been ordered. INT IV fluids IV Zofran IV Toradol Critical care attestation.: If time is entered above; I have spent that time in minutes in the direct care of this critically ill patient, excluding procedure time. ED Disposition Clinical Impression: Acute abdominal pain, Nausea and vomiting, Hydronephrosis due to obstruction of ureter Disposition: HOME / SELF CARE / HOMELESS Is pt being admited?: No Does the pt Need Aspirin: No Condition: Stable Instructions: Abdominal Pain (ED), Nausea and Vomiting, Adult, [id number] Additional Instructions: You have a moderate obstructing kidney stone on your left side. You need to take pain medication Flomax increase your fluid intake and follow-up with a u rologist in the next 3 to 4 days. Return back to the emergency room if symptoms get worse. Prescriptions: Tamsulosin [Flomax] 0.4 mg PO QDAY #5 cap Oxycodone HCl/Acetaminophen [Percocet 7.5/325 mg] 1 each PO Q6HR PRN #20 PRN Reason: Pain Ketorolac [Toradol] 10 mg PO Q6H PRN #20 PRN Reason: Pain Referrals: PRIMARY CARE, [Primary Care Provider] - 3-5 Days NAYLA ROTHMAN MD [Staff Physician] - 3-5 Days Forms: Work/School Release Form(ED) Time of Disposition: 20:10
[2021-08-22 16:34] LABS: Bacteria,Urine 1+ /HPF (Negative); Bilirubin,Urine NEG (Negative); Blood,Urine MOD (Negative); Color,Urine Yellow (Yellow); Mucus,Urine 3+ /HPF
--- NOTE | 2021-08-22 16:42 | XRay Report ---
CHEST 2 VIEWS INDICATION / CLINICAL INFORMATION: flank pain, hx diabetes, htn. Hypertension FINDINGS: SUPPORT DEVICES: None. HEART / MEDIASTINUM: No significant abnormality. LUNGS / PLEURA: No significant pulmonary or pleural abnormality. No pneumothorax. ADDITIONAL FINDINGS: No significant additional findings. IMPRESSION: 1. No acute findings. Signer Name: Jules Pastor MD Signed: 08/22/2021 4:38 PM Workstation Name: [id number]
[2021-08-22 17:12] LABS: Basophils % (Auto) 0.2 % (0.0-1.8); Hematocrit 39.9 % (30.3-42.9); Hemoglobin 12.5 gm/dl (10.1-14.3); Lymphocytes # (Auto) 0.8 K/mm3 (1.2-5.4); Mean Corpuscular HGB Conc 31 % (30-34); Mean Corpuscular Volume 91 fl (79-97); Monocytes # (Auto) 0.2 K/mm3 (0.0-0.8); Monocytes % (Auto) 3.4 % (0.0-7.3); Platelet Count 196 K/mm3 (140-440); Red Blood Count 4.37 M/mm3 (3.65-5.03); Red Cell Distribution Width 14.8 % (13.2-15.2)
[2021-08-22] MEDS ORDERED: ACETAMINOPHEN 500 MG TAB PO ONE (17:30)
[2021-08-22 17:37] LABS: Alanine Aminotransferase 8 units/L (7-56); Albumin 4.1 g/dL (3.9-5); Blood Urea Nitrogen 18 mg/dL (7-17); Calcium 8.8 mg/dL (8.4-10.2); Hemolysis Index 6
[2021-08-22 17:54] LABS: BUN/Creatinine Ratio 30
[2021-08-22] MEDS ORDERED: ONDANSETRON 4 MG ODT TAB PO ONE (19:38)
[2021-08-22] MEDS ORDERED: oxyCODONE /ACETAMINOPHEN 5-325MG TAB PO ONE (19:38)
--- NOTE | 2021-08-22 19:58 | Cat Scan Report ---
CT ABDOMEN AND PELVIS WITH CONTRAST INDICATION / CLINICAL INFORMATION: LEFT FLANK PAIN. TECHNIQUE: Axial CT images were obtained through the abdomen and pelvis after 100 cc Omnipaque [address] scans at this location are performed using CT dose reduction for ALARA by means of automated exposure control. COMPARISON: CT abdomen and pelvis with contrast from 10/28/2020. FINDINGS: LOWER CHEST: No significant abnormality. LIVER: No significant abnormality. GALLBLADDER: Probable vicarious excretion of previously administered contrast versus sludge is seen i n the gallbladder with possible subcentimeter gallbladder polyps. No acute findings. BILE DUCTS: No significant abnormality. PANCREAS: No significant abnormality. SPLEEN: No significant abnormality. ADRENALS: No significant abnormality. RIGHT KIDNEY/URETER: No significant abnormality. LEFT KIDNEY/URETER: 2 stones are seen at the left UVJ measuring up to 4 mm with secondary moderate hy droureteronephrosis. There is mild generalized periureteral and perinephric fat stranding. A nonobstr uctive 2-3 mm left lower renal pole stone is noted. No other significant abnormality. STOMACH/SMALL BOWEL: No significant abnormality. COLON: No significant abnormality. APPENDIX: No significant abnormality. PERITONEUM: No free fluid. No free air. No fluid collection. LYMPH NODES: No significant adenopathy. VASCULATURE: There is mild generalized atherosclerosis without other significant abnormalities. URINARY BLADDER: No significant abnormality. REPRODUCTIVE ORGANS: No significant abnormality. Prior hysterectomy. ADDITIONAL FINDINGS: None. BONES: No significant abnormality IMPRESSION: 1. Moderately obstructive left ureteral stones measuring up to 4 mm. 2. Additional findings as above. Signer Name: Kraig Callahan MD Signed: 08/22/2021 7:53 PM Workstation Name: [id number]
[2021-08-22 20:44] VITALS: BP 166/84
== END 2021-08-22 20:48 | disposition home or self-care (01) ==
LOC: ED 12:35
DX: N13.30 Unspecified hydronephrosis (principal); R11.2 Nausea with vomiting, unspecified; I10 Essential (primary) hypertension; E11.9 Type 2 diabetes mellitus without complications
CPT/HCPCS: 36415; 71046; 74177; 80053; 81001; 84484; 85025; 93005; 93010; 96361; 96372; 96374; 99285; J1885; J2405; J7030; Q9967; Q0162